=== PATIENT | female | born 1985 | race Caucasian/White ===

== ENCOUNTER 2018-01-24 10:30 | Outpatient (RCR) | payer OTHER, SELFPAY ==
--- NOTE | 2018-02-04 09:08 | HP.PTEVAL_ITS ---
Patient's Visit Information SUSIE PYLE is a 32 year old F referred to Physical Therapy by Lory Goss DO with a diagnosis of R IT band syndrome. Date of Evaluation: 01/21/18 Physical Therapist: Silver Bliss DPT - Visit Plan Frequency: 2x /Week Duration: 4 Weeks Plan: Cont core and glute complex strengthening. - Subjective Findings: Pt. is here today for her initial evaluation with diagnosis of IT band syndrom and glute med weakness. 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 Pt. reports noticing increased symtos for about 3 months now. Pt. denies N/T in either LE. Pt. reprots trying to work out a local gym and her symptoms really bothered her. Pt. was using T-mill and eliptical. Pt. reports pain is mostly at her R hip, but does extend down her lateral leg to knee knee. Pt. has done some stretching from videos online, but minimal relief. Pt. is hopeful to reduce symptoms in order to get back to all recreational and work activties without issues or limitations. - Pain R hip Pain Intensity (Out of 10): 2 Pain Intensity Range: 0, 4 - Objective POSTURE: Pt. has normal posture in stance. Pt. has equal iliac crest heights. PALPATION: Pt. has increased tenderness at R greater trochanter, R piriformis muscle belly, TFL and along IT band. NEURO: normal DTR and sensation bilaterally. ROM: Pt. has normal hip ROM bilaterally, except tight R hip- TFL, and piriformis. Pt. has normal HS length. Normal lumbar spine ROM without increase in symptoms. GAIT: Pt. has normal gait pattern, slight increase in lateral sway of hips, but minmal. STAIRS: normal pattern, mild increase NW with descending. - Special Tests R Hip Scour: Negative R Hip LA - Intraarticular Pathology: Negative R Hip FADDIR - Labrum: Negative R Hip Trendelenberg - Glut Medius: Negative R Hip Andrea - IT Band: Positive - Goals Goal 1:: Pt. to be I with HEP. Goal Time Frame: 4-6 Weeks Goal 2:: Pt. to have negative andrea's test indicating improved TLF mobility. Goal Time Frame: 4-6 Weeks Goal 3:: Pt. to have increased glute med and glute max strength to atleast 4+/5 to reduce stress to TFL with all functional mobility. Goal Time Frame: 4-6 Weeks Goal 4:: Pt. to complete her full work day withotu increase in R hip pain. Goal Time Frame: 4-6 Weeks - Rehabilitation Potential Physical Therapy Diagnosis: Pt. has signs and symptoms consistent with R IT band syndrome, most likely due to over use of TFL with glute med weakness. Pt. would benefit from PT to decreased symptoms then progress to glute med strengthening and TFL stretching. Rehabilitation Potential: Excellent - Anticipated Interventions Patient/Client Instruction: Educate patient on: Condition, Plan of Care, Risk Factors, Benefits of Fitness Program For the Purpose of:: To improve decision making, To facilitate caregiver knowledge, To improve self management, To prevent re-injury, To improve ability to perform tasks related to life management, To improve tolerance to ADL's Therapeutic Exercise to Include: Strength training, Power training, Balance training, Postural training, Flexibilty training, Passive ROM, Active ROM, Dynamic Lumbar Stabilization For the Purpose of:: To decrease pain, To increase ROM, To improve nutrient delivery to tissue, To increase oxygenation perfusion, To improve muscle performance and motor function, To improve ability to perform ADL's, To improve health of tissue, To increase flexibility/ROM Manual Therapy Techniques to Include: Mobilization, Passive ROM, Functional dry needling, Other For the Purpose of:: To decrease pain, To increase ROM, To improve nutrient delivery to tissue, To increase oxygenation perfusion, To improve muscle performance and motor function, To improve ability to perform ADL's Ultrasound (thermal/non thermal): Yes For the Purpose of:: To decrease pain, To decrease swelling/inflammation, To increase ROM Thank you for the opportunity to evaluate your patient. For Medicare and Medicare HMO plans, please review the plan of care and approve it. It will need to be FAXED BACK to us at [phone] for Medicare purposes. For Medicare only, by signing this I certify the plan of care. Please let me know if there are questions or concerns regarding this plan of care. Physician Signature: Date:
--- NOTE | 2018-08-11 08:46 | HP.PT.NRP ---
HP - Discharge Summary (1) - Patient Information SUSIE PYLE was seen in my office for initial evaluation on 01/21/18. The following Plan of Care was established for this patient: Initial Frequency: 2x /Week Initial Duration: 4 Weeks - Anticipated Interventions Patient/Client Instruction: Educate patient on: Condition, Plan of Care, Risk Factors, Benefits of Fitness Program For the Purpose of:: To improve decision making, To facilitate caregiver knowledge, To improve self management, To prevent re-injury, To improve ability to perform tasks related to life management, To improve tolerance to ADL's Therapeutic Exercise to Include: Strength training, Power training, Balance training, Postural training, Flexibilty training, Passive ROM, Active ROM, Dynamic Lumbar Stabilization For the Purpose of:: To decrease pain, To increase ROM, To improve nutrient delivery to tissue, To increase oxygenation perfusion, To improve muscle performance and motor function, To improve ability to perform ADL's, To improve health of tissue, To increase flexibility/ROM Manual Therapy Techniques to Include: Mobilization, Passive ROM, Functional dry needling, Other For the Purpose of:: To decrease pain, To increase ROM, To improve nutrient delivery to tissue, To increase oxygenation perfusion, To improve muscle performance and motor function, To improve ability to perform ADL's Ultrasound (thermal/non thermal): Yes For the Purpose of:: To decrease pain, To decrease swelling/inflammation, To increase ROM This patient was last seen in our office 01/24/18. Pertinent comments regarding their Physical therapy will appear below: Pt. was seen for her IT band syndrome. Pt. was given an HEP program with stretching and strengthening. Pt. has been doing well and is independent with her program. Pt. will be DC from PT at this point in time. At this point I will be discontinuing this patient from physical therapy. I would be happy to see this patient again in the future if found appropriate by the physician. Thank you! NOEMI AlamoT
== END 2018-01-24 19:00 | disposition home or self-care (01) ==
LOC: PT 10:30
PROVIDERS: Family Provider Internal Medicine; PCP Internal Medicine; Referring Provider Internal Medicine; Visit Provider Internal Medicine
DX: M79.604 Pain in right leg (principal); M76.30 Iliotibial band syndrome, unspecified leg
CPT/HCPCS: 97110; 97161

== ENCOUNTER 2019-03-16 20:02 | Outpatient (CLI) | payer OTHER, SELFPAY ==
[2014-09-27 07:07] VITALS: BMI 31.4
[2019-03-16 20:23] VITALS: BMI 29.7
[2019-03-16 20:56] LABS: ROM Internal Control Test YES-OK TO RESULT pt. (Internal QC); ROM Patient Test Negative (Negative)
--- NOTE | 2019-03-16 21:10 | OB.TRI.NOTE ---
History of Present Illness Date of Service: 03/16/19 Was patient seen by the physician?: No Reason For Visit: R/O LABOR Allergies No Known Allergies Allergy (Verified 03/16/19 20:24) Laboratory Studies: Laboratory Tests 03/16/19 Range/Units 20:15 Vag Amniotic Fld Detect Negative (Negative) NST - FHR Rate Baby A Baseline: 145 Variability:: Moderate Accelerations:: 15 x 15 Decelerations:: Variable NST Reactive:: Yes Uterine Activity:: Irritability Impression/Plan Reactive NST for threatened PTL
[2019-05-18 07:23] VITALS: TEMP 36.6; O2SAT 97
[2019-05-18 07:25] VITALS: BP 129/75; PULSE 100
[2019-05-18 08:58] VITALS: TEMP 37.2
[2019-05-18 08:59] VITALS: BP 135/81; PULSE 92
== END 2019-03-16 22:45 | disposition home or self-care (01) ==
LOC: WPOUT 20:13 → WP 20:14
PROVIDERS: PCP Internal Medicine; Visit Provider Obstetrics & Gynecology
DX: O60.00 Preterm labor without delivery, unspecified trimester (principal); Z3A.00 Weeks of gestation of pregnancy not specified
CPT/HCPCS: 59025; 59050; 84112; 99218; G0378

== ENCOUNTER 2019-05-18 06:55 | Inpatient (IN) | payer OTHER, SELFPAY ==
[2019-05-18] VITALS (49 sets, daily range): BP systolic 95–143; BP diastolic 50–97; PULSE 77–214; RESP 14–19; TEMP 36.2–37.5; O2SAT 78–100; BMI 31.8
[2019-05-18] MEDS: Lactated Ringers 1,000 ML 50 ML IV (07:35)
[2019-05-18] MEDS: Oxytocin 30 units/NS 500 ml 30 UNITS/500 ML IV.SOLN IV (08:15)
[2019-05-18 09:45] LABS: Absolute Lymphocyte Count 1.05 X10^3/uL (0.83-4.51); Absolute Neutrophil Count 4.8 X10^3/uL (2.0-7.7); Basophil# 0.02 X10^3/uL; Basophil% 0.3 % (0-1); Eosinophil# 0.06 X10^3/uL; Hematocrit 43.7 % (37-47); Hemoglobin 14.8 g/dL (12.0-15.0); Lymphocyte # 1.05 X10^3/ul (4.0); Lymphocyte % 16.7 % (19-41); Mean Corp Hgb Conc 33.9 g/dL (32-36); Mean Corpuscular Hgb 29.6 pg (27.0-32.0); Mean Corpuscular Volume 87.4 fL (81-99); Mean Platelet Vol. 11.3 fl (6.2-12.0); Monocyte# 0.33 X10^3/uL; Monocyte% 5.3 % (0-10); NRBC Flagged by Analyzer 0 % (0-5); Neutrophil # 4.78 X10^3/uL (2.7-7.7); Neutrophil % 76.1 % (47-70); Platelet Count 157 K/mm3 (150-450); RBC Distribution Width CV 13.4 % (11.6-14.6); RBC Distribution Width SD 42.2 fl (35.1-43.9); White Blood Count 6.3 K/mm3 (4.4-11.0)
--- NOTE | 2019-05-18 09:58 | PCM.HP.OB ---
History Date of Admission: 08/16/14 - L&D triage Final RONALDO: 05/25/19 Gestational age: 39 Weeks and 0 Days History of this : This is a 34 year-old, 3 para 1-0-1-1 at 39 weeks gestation with a EDC of 05/25/2019 by first trimester ultrasound alone presents for elective induction of labor. She denies any gross vaginal bleeding or leaking of fluid. She is had good movement. was complicated to date only by an abnormal hour GTT but her 3-hour was normal. Allergies No Known Allergies Allergy (Verified 03/16/19 20:24) Home Medications: Home Medications Vits [Prenatabs FA] 1 tablet PO DAILY 08/15/14 Smoking Status: Never smoker Alcohol: None Number of Fetus(es): 1 NST - FHR Rate Baby A Baseline: normal Variability:: Moderate Accelerations:: 15 x 15 Decelerations:: None NST Reactive:: Yes FHR Category:: Category I Uterine Activity:: ctxs q2-3 min History Past Pregnancies: Past Pregnancies Delivery Date Name GA/ Weeks Outcome Route Wt Sex Labor Length Anesthesia Delivery Location Provider FOB Expected Infant Delivery Method: Spontaneous Vaginal Review of Systems Constitutional: Denies: Chills, Fever Eyes: Denies: Blurred vision Cardiovascular: Denies: Chest Pain Respiratory: Denies: Cough Gastrointestinal: Denies: Abdominal Pain Genitourinary: Denies: Dysuria Skin: Denies: Rash Neurological: Denies: Blurred vision, Change in Speech Hematologic/ Lymphatic: Denies: Anemia Physical Exam General: Alert, Cooperative, No apparent distress Cardiovascular: Regular rate Lungs: Normal air movement Abdomen: Soft, Non Tender, Non-Distended, Gravid Extremities:: Other - edema 1+ NURSE CASE MANAGEMENT: Normal external genitalia Estimated gestational size: Appropriate for gestational size Presentation: Cephalic Cervix Dilation (cm): 3 Station: -2 Effacement (%): 70 Assessment/Plan This is a 34 year-old, @ 39 weeks for elective induction of labor. R/b/A/p for induction reviewed, questions answered and she desires to proceed. PIT/AROM induction. Epidural prn pain control.
[2019-05-18] MEDS: Lactated Ringers 500 ML 999 ML IV (11:11)
[2019-05-18] MEDS: fentaNYL-bupivacaine (epidural) 100 ML BAG EPIDURAL ×2 (12:00→16:16)
[2019-05-18] MEDS: Lactated Ringers 1,000 ML 200 ML IV (15:36)
[2019-05-18] MEDS: fentaNYL 100 MCG/2 ML Ampul IV (16:00)
[2019-05-18] MEDS: Sodium Citrate/Citric Acid 30 ML UDC PO (17:07)
[2019-05-18] MEDS: Cefazolin 2 GM in 0.9% Normal Saline 100 ML IV (17:10)
[2019-05-18] MEDS: Methylergonovine 0.2 MG/ML Ampul IM (17:41)
--- NOTE | 2019-05-18 18:24 | PCM.OPRPT ---
Delivery Classification: LISY Final RONALDO: 05/25/19 Final RONALDO Source: US <20 weeks Gestational age: 39 Weeks and 0 Days Type of Anesthesia:: Epidural Special Medications: none Implants Used: none Date of Procedure: 05/18/19 Pre-Operative Diagnosis: arrest of descent, 39 weeks , failed trial of vacuum Post-Operative Diagnosis: same Description of Procedure: The patient had been complete for over 2 hours. We are having difficulty getting her comfortable with her epidural. It had been redosed several times, and she had recently received some lidocaine which made her a little more comfortable. However, she could start to feel increased pain with her contractions again. Estimated weight clinically was less than 4500 g and pelvis is clinically adequate to expect vaginal delivery. Patient had progressed to complete and +2, SANDI position. Straight catheterization had been formed by nursing immediately before the procedure. I discussed with the patient and her options of attempting to replace the epidural and allowing her to labor down more, trial of the vacuum, or proceeding with section. They elected to proceed with the trial of vacuum. Vacuum was placed on the flexion point and suction created to 550 mmHg. I checked to ensure no maternal tissue was entrapped within the vacuum. I pulled once, and the vacuum slipped onto the right vaginal sidewall whilst still remaining partially attached to the skull. I released the vacuum and removed the vacuum and replaced it in the proper position and ensured again that there was no maternal tissue trap beneath it. However, as I began to pull and noticed that the vacuum began to move and I had to place a finger between the maternal tissue and vacuum but the vacuum kept wanting to release. Pulled for 3 total pulls, and the suction would not remain on the skull. Had been no significant descent with those 3 pulls. At this point, I discussed with the patient and her that I felt continuing the second stage would result in a high likelihood of . Recommended now versus replacing epidural and attempting to continue the second stage. Consent was obtained. It was noted that there was a right 2 cm vaginal laceration that was actively bleeding. This was oversewed with 3-0 Vicryl repeat in a running locked fashion and hemostasis was noted. A vaginal sweep was completed by me. All sponge and needle counts were correct and the patient was taken the operating room. The patient was taken to the operating room. She was prepped and draped in the dorsal supine position with a leftward tilt. A Pfannenstiel skin incision was made approximately 2 cm above the symphysis pubis and carried through to underlying layer fascia with the scalpel. The fascia was incised incised in the midline and extended laterally with the Cook scissors. The fascia was dissected off the rectus muscles with blunt and sharp dissection. The rectus muscles were in the midline and the peritoneum was entered bluntly. The peritoneal incision was stretched and the bladder blade was placed. The uterine incision was made in a low transverse fashion with the scalpel and extended superiorly and inferiorly with blunt dissection. Care was made to make the uterine incision high on the uterus, and when I entered the uterine cavity the arm delivered. I was able to place a hand down under the skull without difficulty and easily released the fetus from the pelvis. The infant's head was brought to the incision in the flexed position and delivered without difficulty. The remainder of the infant was delivered with gentle traction and fundal pressure in the standard fashion. The mouth and nares were bulb suctioned. The cord was clamped and cut as the was stimulated. Cord clamping was delayed. The was handed off to the waiting nursing staff. The placenta was delivered with fundal massage and gentle traction in the standard fashion. The uterus was exteriorized and cleared of all clots and debris. . The uterine incision was closed with #1 Vicryl in a running locked fashion. A second layer of the same suture was used in an imbricating fashion. There is still a bleeding sinus on the left side of the uterine incision in a [id number] #1 Vicryl suture was placed here and then hemostasis was noted. The bladder was very near the incision and I did dissect down the bladder to ensure that the bladder flap was not contained within the uterine incision closure. The incision was again examined and was found to be hemostatic. The uterus was placed back into the peritoneal cavity and hemostasis was again confirmed. The rectus muscles were examined and any bleeding was Bovie cauterized. The parietal peritoneum and rectus muscles were closed en bloc with an 0 Vicryl running suture. The surgical teams outer gloves were then changed. Some bleeding from the rectus muscle perforating vessel and this was grasped with a hemostat and oversewn with 3-0 Vicryl suture. Kenyetta was placed over every layer. The rectus fascia was examined and any bleeding was Bovie cauterized and the rectus fascia was closed with 1 Vicryl suture in a running standard fashion. The subcutaneous tissue was examining and any bleeding was Bovie cauterized. The subcutaneous tissue was reapproximated with 3-0 Vicryl suture. The skin was closed in a subcuticular fashion by the LOAD MANAGER with me present in the labor and delivery suite. I performed the remainder of the procedure with assistance. I then reexamined the vaginal laceration it was found to be hemostatic and intact. No other lacerations were identified. All sponge, lap, and needle counts were correct. The patient was taken to her room for recovery in a stable condition. Amniotic Membrane Rupture Type: Artificial Amniotic Fluid Description: Clear Placenta Disposition: [facility] Drain: Carrion to straight drain Fluids Replaced: 1000 Cord Entanglement: None Cord Vessel Description: 3 Vessels Esitmated Blood Loss (ml): 1000 Gender: Female (1 minute): 8 (5 minute): 9 Delayed cord clamping: Yes Antibiotic Given: Ancef 2 grams IV x1, Zithromax 500 mg/5 mL X1 - Admit VTE Documentation VTE Present on Admission: No VTE Mechan Device Prophylaxis: SCD's VTE Pharm Prophylaxis ordered?: No Reason prophylaxis not ordered:: Procedure Not Indicated
[2019-05-18] MEDS: Oxytocin 30 units/NS 500 ml 30 UNITS/500 ML IV.SOLN 167 UNITS IV (18:45)
[2019-05-18] MEDS: 0.9% Saline Lock 10 ML Syringe IV (21:55)
--- NOTE | 2019-05-18 22:48 | NURSING ---
2049 Pericare done and peripad and underpad changed. Cloudy yellow urine noted in catheter tubing when turning pt side to side.
[2019-05-19] VITALS (8 sets, daily range): BP systolic 118–139; BP diastolic 55–80; PULSE 83–113; RESP 16–18; TEMP 36.5–37.2; O2SAT 97–99
[2019-05-19] MEDS: 0.9% Saline Lock 10 ML Syringe IV ×6 (00:06→23:44)
[2019-05-19] MEDS: Ketorolac 30 MG/ML Syringe IV ×5 (00:06→23:43)
--- NOTE | 2019-05-19 00:27 | NURSING ---
0015 Assisted pt up around room for first post op ambulation. Abdominal binder used for support, pt tolerated well and walked 4 times around room.
[2019-05-19 06:14] LABS: Hematocrit 26.6 % (37-47); Mean Corp Hgb Conc 33.8 g/dL (32-36); Mean Corpuscular Hgb 29.7 pg (27.0-32.0); Mean Corpuscular Volume 87.8 fL (81-99); Platelet Count 196 K/mm3 (150-450); RBC Distribution Width CV 13.2 % (11.6-14.6); RBC Distribution Width SD 41.8 fl (35.1-43.9); Red Blood Count 3.03 M/mm3 (4.2-5.4); White Blood Count 15.5 K/mm3 (4.4-11.0)
--- NOTE | 2019-05-19 09:47 | PN.OBGYN_ITS ---
Subjective: Doing well per patient and nursing staff. Ambulating and taking PO without difficulty. Voiding and passing flatus. without difficulty. Pain controlled. Denies any cough, shortness of breath, chest pain, leg pain, increased vaginal bleeding or clots. Planning D/C home tomorrow. - Physical Exam Vitals/I&O's: Vital Signs Temp Pulse Resp BP Pulse Ox 97.9 F 95 18 118/55 L 97 05/19/19 08:04 05/19/19 08:04 05/19/19 08:04 05/19/19 08:04 05/19/19 08:04 Oxygen Delivery Method Room Air Weight: 179 lb 10.828 oz Body Mass Index (BMI) 31.8 Intake and Output for Last 24 Hours 05/17/19 05/18/19 05/19/19 23:59 23:59 23:59 Intake Total 2858.02 / 2858.02 Output Total 218 / 218 1200 / 1200 Balance 2640.02 / 2640.02 -1200 / -1200 General: Alert, Oriented x3, Cooperative HEENT: Atraumatic, Normocephalic Neck: Trachea Midline Lungs: Clear to auscultation, Normal air movement, No rhonchi, No wheeze Cardiovascular: Regular rate, Regular Rhythm, No murmurs Abdomen: Bowel Sounds Present - Fundus firm, 3 below U. Incision dressing dry and intact., Soft, Hypoactive Bowel Sounds Extremities: No edema - Latia's negative Psych/Mental Status: Normal Affect, Appropriate Laboratory Results 05/18/19 07:35: Blood Type A POSITIVE, Antibody Screen NEGATIVE 05/19/19 05:38: WBC 15.5 H, RBC 3.03 L, Hgb 9.0 L, Hct 26.6 L, MCV 87.8, MCH 29.7, MCHC 33.8, RDW Std Deviation 41.8, RDW Coeff of Olman 13.2, Plt Count 196, MPV 11.0 Current Medications Acetaminophen (Tylenol) 1,000 mg PO Q8H PRN PRN Reason: Pain Score 1-3/10 Bisacodyl (Dulcolax) 10 mg RECTAL UD PRN PRN Reason: If no BM Diphenhydramine HCl (Benadryl) 25 mg PO Q6H PRN PRN PRN Reason: ITCHING Stop: 05/19/19 19:55 Ferrous Sulfate (Ferrous Sulfate) 325 mg PO 1200,1700 [facility] Hydrocortisone (Hytone) 1 applic TOPICAL TID PRN PRN; Protocol PRN Reason: Discomfort Lactated Ringer's () 1,000 mls @ 100 mls/hr IV .Q10H [facility] Last Admin: 05/19/19 07:43 Dose: Not Given Documented by: Naloxone HCl 4 mg/ Dextrose 504 mls @ 0 mls/hr IV .Q0M PRN; Protocol PRN Reason: To maintain Resp. rate >10 Ibuprofen (Motrin) 600 mg PO Q6H PRN PRN PRN Reason: Pain Score 1-3/10 Ketorolac Tromethamine (Toradol (Bkc)) 30 mg IV Q6 [facility] Stop: 05/20/19 18:01 Last Admin: 05/19/19 05:57 Dose: 30 mg Documented by: Methylergonovine Maleate (Methergine) 0.2 mg IM X1 PRN PRN Reason: Uterine Atony Last Admin: 05/18/19 17:41 Dose: 0.2 mg Documented by: Naloxone HCl (Narcan) 0.02 mg IV Q1M PRN PRN Reason: RR <10 and pt unresponsive Ondansetron HCl (Zofran) 4 mg IV Q4H PRN PRN PRN Reason: Nausea Ondansetron HCl (Zofran Odt) 4 mg PO Q4H PRN PRN PRN Reason: ITCHING Stop: 05/19/19 19:55 Prochlorperazine Edisylate (Compazine Iv) 10 mg IV Q6H PRN PRN PRN Reason: NAUSEA Senna/Docusate Sodium (Senokot-S, Ana Rosa-Colace) 0 tablet PO DAILY PRN PRN Reason: Constipation Simethicone (Mylicon) 80 mg PO PCHS PRN PRN Reason: Indigestion/stomach pain Sodium Chloride () 5 - 15 ml IV UD PRN PRN Reason: SALINE FLUSH Last Admin: 05/19/19 05:57 Dose: 10 ml Documented by: Medical Necessity - Tobacco Use Smoking Status: Former smoker Assessment/Plan A: POD #1 Primary Section Acute Blood loss anemia P: 1) Routine and instructions 2) Hgb 14.8 to 9.0, asymptomatic, will start Ferrous sulfate 325mg PO BID with stool softener. 3) Planning D/C home tomorrow.
[2019-05-19] MEDS: Ferrous Sulfate 325 MG Tablet PO ×2 (12:47→18:44)
[2019-05-19] MEDS: Senna/Docusate Sodium 1 Tablet PO (13:20)
[2019-05-20 03:00] VITALS: BP 134/82; PULSE 98; RESP 16; TEMP 36.6
[2019-05-20] MEDS: Ketorolac 30 MG/ML Syringe IV ×2 (06:01→12:08)
[2019-05-20] MEDS: 0.9% Saline Lock 10 ML Syringe IV ×3 (06:02→12:08)
[2019-05-20 08:50] VITALS: BP 122/66; PULSE 98; RESP 16; TEMP 37; O2SAT 97
[2019-05-20] MEDS: Senna/Docusate Sodium 1 Tablet PO (10:41)
--- NOTE | 2019-05-20 11:31 | PCM.PN.OB ---
Subjective: Doing well per patient and nursing staff. Ambulating and taking PO without difficulty. Voiding and passing flatus. Denies cough, dizziness, headache, visual changes, chest pain, shortness of breath, or leg pain. Lochia normal. without difficulty. Planning D/C home today. - Physical Exam Vitals/I&O's: Vital Signs Temp Pulse Resp BP Pulse Ox 98.6 F 98 16 122/66 H 97 05/20/19 08:50 05/20/19 08:50 05/20/19 08:50 05/20/19 08:50 05/20/19 08:50 Oxygen Delivery Method Room Air Weight: 179 lb 10.828 oz Body Mass Index (BMI) 31.8 Intake and Output for Last 24 Hours 05/18/19 05/19/19 05/20/19 23:59 23:59 23:59 Intake Total 2858.02 / 2858.02 Output Total 218 / 218 1700 / 1700 Balance 2640.02 / 2640.02 -1700 / -1700 General: Alert, Oriented x3, Cooperative HEENT: Atraumatic, Normocephalic Neck: Trachea Midline Lungs: Clear to auscultation, Normal air movement, No rhonchi, No wheeze Cardiovascular: Regular rate, Regular Rhythm, No murmurs Abdomen: Bowel Sounds Present, Soft - Fundus firm 3 below U. Dressing dry and intact. Extremities: No edema - Latia's negative bilaterally Psych/Mental Status: Normal Affect, Appropriate Current Medications Acetaminophen (Tylenol) 1,000 mg PO Q8H PRN PRN Reason: Pain Score 1-3/10 Bisacodyl (Dulcolax) 10 mg RECTAL UD PRN PRN Reason: If no BM Ferrous Sulfate (Ferrous Sulfate) 325 mg PO 1200,1700 [facility] Last Admin: 05/19/19 18:44 Dose: 325 mg Documented by: Hydrocortisone (Hytone) 1 applic TOPICAL TID PRN PRN; Protocol PRN Reason: Discomfort Naloxone HCl 4 mg/ Dextrose 504 mls @ 0 mls/hr IV .Q0M PRN; Protocol PRN Reason: To maintain Resp. rate >10 Ibuprofen (Motrin) 600 mg PO Q6H PRN PRN PRN Reason: Pain Score 1-3/10 Ketorolac Tromethamine (Toradol (Bkc)) 30 mg IV Q6 [facility] Stop: 05/20/19 18:01 Last Admin: 05/20/19 06:01 Dose: 30 mg Documented by: Methylergonovine Maleate (Methergine) 0.2 mg IM X1 PRN PRN Reason: Uterine Atony Last Admin: 05/18/19 17:41 Dose: 0.2 mg Documented by: Naloxone HCl (Narcan) 0.02 mg IV Q1M PRN PRN Reason: RR <10 and pt unresponsive Ondansetron HCl (Zofran) 4 mg IV Q4H PRN PRN PRN Reason: Nausea Prochlorperazine Edisylate (Compazine Iv) 10 mg IV Q6H PRN PRN PRN Reason: NAUSEA Senna/Docusate Sodium (Senokot-S, Ana Rosa-Colace) 0 tablet PO DAILY PRN PRN Reason: Constipation Last Admin: 05/20/19 10:41 Dose: 2 tablet Documented by: Simethicone (Mylicon) 80 mg PO PCHS PRN PRN Reason: Indigestion/stomach pain Last Admin: 05/19/19 10:38 Dose: 80 mg Documented by: Sodium Chloride () 5 - 15 ml IV UD PRN PRN Reason: SALINE FLUSH Last Admin: 05/20/19 06:03 Dose: 10 ml Documented by: Medical Necessity - Tobacco Use Smoking Status: Former smoker Assessment/Plan A: POD #2 primary section Acute blood loss anemia P: 1) Routine and discharge instructions reviewed. Doing well. 2) BP mildly elevated, asymptomatic. Will get BP cuff and check BP daily, advised to call if > 140/90. 3) Follow up in 1 week for incision and BP check and 6 weeks for virtual visit. 4) Discharge home today. 5) Declines LARC
--- NOTE | 2019-05-20 11:43 | DCINST_ITS ---
Discharge Diet: No Restrictions Discharge Activity: May Not Drive - for 2 weeks or while taking narcotic pain meds., May Shower, May Take a Tub Bath - in 7 days. May resume sexual activity in: 4-6 weeks Weight Bearing Status: Full weight bearing Lifting Restrictions: 20 pounds Additional Activity Instructions:: Nothing in the vagina for 4-6 weeks. You may return to work/school in 6 weeks. Call your doctor if your incision/area has: Continuous Slow Oozing, Sudden Increased Bleeding, Increased Pain/ Swelling, Increased Redness, Foul Smelling Discharge Call your doctor if you observe: Fever of 101 or Higher, Change in Color, Inability to urinate, Inability to have a bowel movement, Using more than one pad per hour, Shortness of breath, Chest pain, Increased palpitations (irregular heartbeat), Calf discomfort, Uncontrolled pain Suture Line Care: Avoid Pulling/Pushing, Avoid Pinching/Bending Additional Instructions: If you experience any of the following, contact your healthcare provider. * Bleeding that soaks a pad every hour for 2 hours * Fever 100.4 or higher * Unrelieved incision or abdominal pain * Swelling, redness, discharge or bleeding from your incision or episiotomy site * Your incision begins to separate * Problems urinating (including inability to urinate or burning while urinating). * Visual changes * Severe headache * Flu-like symptoms * Pain or redness in one of both of your breasts * Pain, warmth, tenderness or swelling in your legs, especially the calf area * Frequent nausea and vomiting * Symptoms of depression or anxiety If you experience any of the following, call 911 or go to the nearest Emergency Room. * Chest pain * Problems breathing * Seizure activity * Partial or complete paralysis of a body part, slurred speech, weakness or drooping of the face, or a sudden inability to walk or hold your balance Allergies/Adverse Reactions: Allergies No Known Allergies Allergy (Verified 03/16/19 20:24) Medications to take at Discharge Vits [Prenatabs FA ] 1 tablet PO DAILY 08/15/14 Ferrous Sulfate 325 mg PO 1200,1700 #60 tab 05/20/19 Oxycodone HCl/Acetaminophen [Percocet 5/325] 1 - 2 tablet PO Q4H PRN PRN 7 Days #20 tablet 05/20/19 The following prescriptions were given: Ferrous Sulfate 325 mg PO 1200,1700 #60 tab Transmission Status: Pending to MARIBELL MORILLO RD Oxycodone HCl/Acetaminophen [Percocet 5/325] 1 - 2 tablet PO Q4H PRN PRN 7 Days #20 tablet PRN Reason: Pain Transmission Status: Received by MARIBELL MORILLO RD Follow-Up: Call to make an appointment with your doctor for an incision check in 1-2 weeks. Call and they can assist with setting up a virtual visit. You will also need a 6 week post- follow up appointment. Please take BP and call Wednesday with results. If greater than 140/90 please call certification technician provider this weekend. Please Follow Up With: Zuly Salas MD Primary Care Physician: Lory Goss DO [Primary Care Provider] -
--- NOTE | 2019-05-20 11:46 | DS.PCM_ITS ---
Discharge Date and Diagnosis Date of Admission: 08/16/14 - L&D triage Date of Discharge: 05/20/19 - Primary Discharge Diagnosis section - Secondary Discharge Diagnosis acute blood loss anemia Hospital Course and Treatment Consultations 05/18/19 09:39 Consult: Anesthesia Routine Comment: Reason For Exam: Labor Operations: - - Section Procedures: None Summary of Care Provided: This is a 34 year-old, 3 para 1-0-1-1 at 39 weeks gestation with a EDC of 05/25/2019 by first trimester ultrasound alone presents for elective induction of labor. Arrest of descent, 39 weeks , failed trial of vacuum. Normal course. Acute blood loss anemia. Discharge home on day #2. - Physical Exam Vitals/I&O's: Vital Signs Temp Pulse Resp BP Pulse Ox 98.6 F 98 16 122/66 H 97 05/20/19 08:50 05/20/19 08:50 05/20/19 08:50 05/20/19 08:50 05/20/19 08:50 Oxygen Delivery Method Room Air Weight: 179 lb 10.828 oz Body Mass Index (BMI) 31.8 Intake and Output for Last 24 Hours 05/18/19 05/19/19 05/20/19 23:59 23:59 23:59 Intake Total 2858.02 / 2858.02 Output Total 218 / 218 1700 / 1700 Balance 2640.02 / 2640.02 -1700 / -1700 Current Medications Acetaminophen (Tylenol) 1,000 mg PO Q8H PRN PRN Reason: Pain Score 1-3/10 Bisacodyl (Dulcolax) 10 mg RECTAL UD PRN PRN Reason: If no BM Ferrous Sulfate (Ferrous Sulfate) 325 mg PO 1200,1700 [facility] Last Admin: 05/19/19 18:44 Dose: 325 mg Documented by: Hydrocortisone (Hytone) 1 applic TOPICAL TID PRN PRN; Protocol PRN Reason: Discomfort Naloxone HCl 4 mg/ Dextrose 504 mls @ 0 mls/hr IV .Q0M PRN; Protocol PRN Reason: To maintain Resp. rate >10 Ibuprofen (Motrin) 600 mg PO Q6H PRN PRN PRN Reason: Pain Score 1-3/10 Ketorolac Tromethamine (Toradol (Bkc)) 30 mg IV Q6 [facility] Stop: 05/20/19 18:01 Last Admin: 05/20/19 06:01 Dose: 30 mg Documented by: Methylergonovine Maleate (Methergine) 0.2 mg IM X1 PRN PRN Reason: Uterine Atony Last Admin: 05/18/19 17:41 Dose: 0.2 mg Documented by: Naloxone HCl (Narcan) 0.02 mg IV Q1M PRN PRN Reason: RR <10 and pt unresponsive Ondansetron HCl (Zofran) 4 mg IV Q4H PRN PRN PRN Reason: Nausea Prochlorperazine Edisylate (Compazine Iv) 10 mg IV Q6H PRN PRN PRN Reason: NAUSEA Senna/Docusate Sodium (Senokot-S, [place]-Colace) 0 tablet PO DAILY PRN PRN Reason: Constipation Last Admin: 05/20/19 10:41 Dose: 2 tablet Documented by: Simethicone (Mylicon) 80 mg PO PCHS PRN PRN Reason: Indigestion/stomach pain Last Admin: 05/19/19 10:38 Dose: 80 mg Documented by: Sodium Chloride () 5 - 15 ml IV UD PRN PRN Reason: SALINE FLUSH Last Admin: 05/20/19 06:03 Dose: 10 ml Documented by: Discharge Diet: No Restrictions Discharge Activity: May Not Drive - for 2 weeks or while taking narcotic pain meds., May Shower, May Take a Tub Bath - in 7 days. May resume sexual activity in: 4-6 weeks Weight Bearing Status: Full weight bearing Additional Activity Instructions:: Nothing in the vagina for 4-6 weeks. You may return to work/school in 6 weeks. Call your doctor if your incision/area has: Continuous Slow Oozing, Sudden Inc reased Bleeding, Increased Pain/ Swelling, Increased Redness, Foul Smelling Discharge Call your doctor if you observe: Fever of 101 or Higher, Change in Color, Inability to urinate, Inability to have a bowel movement, Using more than one pad per hour, Shortness of breath, Chest pain, Increased palpitations (irregular heartbeat), Calf discomfort, Uncontrolled pain Suture Line Care: Avoid Pulling/Pushing, Avoid Pinching/Bending Home Medications: Medications to take at Discharge Vits [Prenatabs FA ] 1 tablet PO DAILY 08/15/14 Ferrous Sulfate 325 mg PO 1200,1700 #60 tab 05/20/19 Oxycodone HCl/Acetaminophen [Percocet 5/325] 1 - 2 tablet PO Q4H PRN PRN 7 Days #20 tablet 05/20/19 Following Prescrptions Were Given to Patient: Ferrous Sulfate 325 mg PO 1200,1700 #60 tab Transmission Status: Pending to [facility] AGUILAR [facility]ISEL [facility]IRKPATRICK Oxycodone HCl/Acetaminophen [Percocet 5/325] 1 - 2 tablet PO Q4H PRN PRN 7 Days #20 tablet PRN Reason: Pain Transmission Status: Received by MARIBELL MORILLO RD Primary Care Physician: Lory Goss DO [Primary Care Provider] - Please Follow Up With: Zuly Salas MD Medical Necessity - Tobacco Use Smoking Status: Former smoker Meaningful Use Info Meaningful Use Diagnoses (Choose all that apply): None applicable
[2019-05-20] MEDS: Ferrous Sulfate 325 MG Tablet PO (12:07)
[2019-05-20 13:45] VITALS: BP 130/73; PULSE 97; TEMP 36.8; O2SAT 98
== END 2019-05-20 15:05 | disposition home or self-care (01) | DRG 787 ==
PROVIDERS: Admitting Provider Obstetrics & Gynecology; PCP Internal Medicine; Referring Provider Obstetrics & Gynecology; Visit Provider Obstetrics & Gynecology
DX: O62.1 Secondary uterine inertia (principal); O71.4 Obstetric high vaginal laceration alone; Z37.0 Single live birth; Z3A.39 39 weeks gestation of pregnancy; O66.5 Attempted application of vacuum extractor and forceps; Z87.891 Personal history of nicotine dependence
CPT/HCPCS: 59025; 59050; 85025; 85027; 86850; 86900; 86901; 99218; J7120; A4216; G0378; J2405

== ENCOUNTER 2022-03-17 13:28 | Emergency (ER) | payer MEDICAID, SELFPAY ==
[2022-03-17 13:28] VITALS: BP 121/79; PULSE 136; RESP 16; TEMP 38.2; O2SAT 99; BMI 24.3
--- NOTE | 2022-03-17 14:17 | EDS_ITS ---
HPI History of Present Illness Chief Complaint: Abscess Detail of Chief Complaint: Ruptured abscess now has redness, fever and chills Informant: patient Onset/Context/Timing Onset: - (Documented in the HPI narrative) Context: Sudden Onset Timing: Continuous Quality: Skin infection Location: Proximal medial right thigh Current Severity: Mild Maximum Severity: Mild Worsened by: Nothing specific Relieved by: Nothing Associated Symptoms Associated Symptoms: Fever, chills and lightheadedness Narrative Narrative: Patient is a 37-year-old G3, P2 female with no significant past medical history who presents from urgent care because of concern for sepsis. Patient states she noted a red dot medial proximal right thigh several days ago. She observed the red area increase in size. She states she poked it with a needle and expressed white material from the wound. Today she went to the urgent care because of fever and chills. She denies allergy to antibiotics. She does report headache, thirst, fever and chills, nausea, central low back pain with rash previously described. She denies dysuria, frequency, urgency or hematuria. She denies rhinorrhea, congestion, postnasal drainage or sore throat. She denies cough or shortness of breath. She does have remote history of DVT right lower extremity. She denies swelling of her leg or discoloration. She denies prior history of abscess. She denies history rheumatic fever, heart murmur, SBE or being immune suppressed. Prior similar symptoms: No Recent Illness/Hospitalization: No (Last hospitalization was 2019 for ) [facility] Medical History (Updated 03/17/22 @ 15:[address] Ravi Montana MD) DVT (deep vein thrombosis) in Home Medications vits,calcium no.78-iron fumarate-folic acid 29 mg-1 mg tablet (Prenatabs FA) 1 tab PO DAILY 08/15/14 [History Last Taken 05/17/19 22:00] ferrous sulfate 325 mg (65 mg iron) tablet 325 mg PO 1200,1700 #60 tabs 05/20/19 [Rx Last Taken Unknown] cephalexin 500 mg capsule 500 mg PO Q6 #28 CAPSULES 03/17/22 [Rx Last Taken Unknown] Allergy/AdvReac Type Severity Reaction Status Date / Time No Known Allergies Allergy Verified 03/17/22 13:31 Surgical History no surgical history no surgical history Social History (Updated 03/17/22 @ 14:[address] Ravi Montana MD) household members: family Smoking Status: Never smoker substance use type: does not use ROS ROS ED Constitutional Constitutional ED: Reports chills, fever(s) and sweats; Denies subjective or weight loss Eyes Eyes: Denies blurry vision, change in vision or diplopia ENT ENT ED: Denies ear pain, rhinorrhea or sore throat Cardiovascular Cardiovascular: Reports racing heartbeat; Denies chest pain or palpitations Respiratory/Chest Respiratory/Chest: Denies cough, dyspnea or dyspnea on exertion Gastrointestinal Gastrointestinal: Reports nausea; Denies abdominal pain, constipation, diarrhea, melena or vomiting Genitourinary Genitourinary ED: Denies dysuria, hematuria or urinary frequency Musculoskeletal Musculoskeletal: Denies arthralgias, back pain, myalgias or neck pain Integumentary Reports abscess and rash; Denies Abrasions Neurologic Neurologic: Denies headache(s), paresthesias or weakness Psychiatric Psychiatric: Denies anxiety or depression Hematologic/Lymphatic Hematologic/Lymphatic: Reports systems reviewed and no addt'l complaints, except as documented and none EXAM Physical Exam Const Vital Signs: 03/17/22 13:28 Temperature 100.8 F H Temperature Source Oral Pulse Rate 136 H Respiratory Rate 16 Blood Pressure 121/79 H Blood Pressure Mean 93 Pulse Ox 99 Oxygen Delivery Method Room Air Positive well nourished and well developed General Appearance ED: well developed and NAD; Negative for cyanotic, diaphoretic or pallor HEENT Reports moist mucous membranes HEENT Narrative: Head is atraumatic normocephalic. Ears normal. TMs normal. Nares patent. There is no drainage. Posterior pharynx erythema or exudate. Uvula is midline. Eyes PERRL and EOMs intact bilaterally General Eye ED: Negative for pale conjunctiva or scleral icterus Neck no lymphadenopathy, supple and no JVD Chest Wall inspection of chest normal and palpation of chest normal Resp normal respiratory effort and clear to auscultation bilaterally Cardio regular rhythm, S1 normal heart sound, S2 normal heart sound and no murmurs Rate: tachycardic GI normal to inspection, nondistended, normoactive bowel sounds, non-tender, non- distended and no masses; Negative for hepatosplenomegaly Back/Spine no CVA tenderness Thoracic Spine / Upper Back: Negative for thoracic spinal tenderness Lumbar Spine / Lower Back: Negative for lumbar spinal tenderness Extremity Negative for normal to inspection Extremity Narrative: Patient has an area of redness approximately 3 cm in diameter. There is no lymphangitis. There is no fluctuance. There is warmth. There is no induration. There is no asymmetry, swelling, discoloration, leg vein distention, palpable cords or tenderness along the distribution of the deep venous system. Neuro oriented x3, CN's II-XII intact bilaterally and no sensory deficits noted Sensorium / Orientation: alert Psych mental status grossly normal Skin No no rashes or lesions noted, No no wounds and skin turgor normal General Skin Exam: Negative for jaundice or pallor Rashes: rashes noted MDM MDM MDM Narrative Medical decision making narrative: Patient has 2 sirs criteria with elevated temperature and tachycardia. Patient does have a source of infection. Since this occurred rapidly suspect streptococcal infection. CBC, BMP and lactate were obtained these were obtained to determine if patient can safely and appropriately be discharged with outpatient versus requiring inpatient therapy. We will treat temperature with Tylenol and administer fluid bolus. Since patient's white count is normal, there is no evidence of endorgan dysfunction and lactate is normal patient will be treated as an outpatient with cephalexin. Since there is no mucopurulence drainage we will treat with cephalexin especially since symptoms started rapidly, over the past 24 hours. This would make a streptococcal organism much more likely than staphylococcal organism. Lab Data Attestation: I reviewed the patient's lab results. Lab results narrative: White count is normal. There is a slight shift. Basic metabolic panel is normal. Lactate is normal. test is negative. Labs: Laboratory Results - last 24 hr 03/17/22 03/17/22 03/17/22 14:20 14:20 14:20 WBC 10.2 RBC 4.07 L Hgb 12.4 Hct 37.0 MCV 90.9 MCH 30.5 MCHC 33.5 RDW Std Deviation 43.0 RDW Coeff of Olman 13.1 Plt Count 170 MPV 10.0 Immature Gran % (Auto) 0.300 Neut % (Auto) 91.4 H Lymph % (Auto) 4.0 L [place] % (Auto) 4.1 Eos % (Auto) 0.0 Baso % (Auto) 0.2 Absolute Neuts (auto) 9.3 H Absolute Lymphs (auto) 0.41 L Nucleated RBC % 0 Differential Comment SCANNED Sodium 136 Potassium 3.7 Chloride 108 H Carbon Dioxide 22.0 Anion Gap 6 BUN 14 Creatinine 0.69 Estim Creat Clear Calc 97.33 Est GFR (MDRD) Af Amer 123 Est GFR (MDRD) Non-Af 102 BUN/Creatinine Ratio 20.2 H Glucose 114 H Lactic Acid 1.5 Calcium 8.7 Serum , Qual 03/17/22 14:20 WBC RBC Hgb Hct MCV MCH MCHC RDW Std Deviation RDW Coeff of Olman Plt Count MPV Immature Gran % (Auto) Neut % (Auto) Lymph % (Auto) [place] % (Auto) Eos % (Auto) Baso % (Auto) Absolute Neuts (auto) Absolute Lymphs (auto) Nucleated RBC % Differential Comment Sodium Potassium Chloride Carbon Dioxide Anion Gap BUN Creatinine Estim Creat Clear Calc Est GFR (MDRD) Af Amer Est GFR (MDRD) Non-Af BUN/Creatinine Ratio Glucose Lactic Acid Calcium Serum , Qual NEGATIVE Discharge Plan Triage Chief Complaint: Abscess ED Provider: Ravi Montana Dx/Rx/DC Orders Clinical Impression: Cellulitis of right thigh, Sepsis without acute organ dysfunction, Sinus tachycardia, Fever Instructions: ED Cellulitis Prescriptions: New cephalexin [cephalexin] 500 mg capsule 500 mg PO Q6 Qty: 28 0RF No Action vit,[id number] [Prenatabs FA] 1 TABLET tablet 1 tab PO DAILY ferrous sulfate 325 MG tablet 325 mg PO 1200,1700 Qty: 60 1RF Primary Care Provider: Lory Goss Referrals: Lory Goss DO [Primary Care Provider] - 3-5 Days Disposition Disposition: Home, Self Care
[2022-03-17 14:33] LABS: Absolute Lymphocyte Count 0.41 X10^3/uL (0.83-4.51); Absolute Neutrophil Count 9.3 X10^3/uL (2.0-7.7); Basophil# 0.02 X10^3/uL; Basophil% 0.2 % (0-1); Hemoglobin 12.4 g/dL (12.0-15.0); Lymphocyte # 0.41 X10^3/ul (0.83-4.51); Mean Corp Hgb Conc 33.5 g/dL (32-36); Mean Corpuscular Hgb 30.5 pg (27.0-32.0); Mean Corpuscular Volume 90.9 fL (81-99); Monocyte# 0.42 X10^3/uL; Monocyte% 4.1 % (0-10); NRBC Flagged by Analyzer 0 % (0-5); Neutrophil # 9.28 X10^3/uL (2.7-7.7); Neutrophil % 91.4 % (47-70); POSITIVE DIFFERENTIAL YES; Platelet Count 170 K/mm3 (150-450); RBC Distribution Width CV 13.1 % (11.6-14.6); Red Blood Count 4.07 M/mm3 (4.2-5.4); White Blood Count 10.2 K/mm3 (4.4-11.0)
[2022-03-17 14:35] LABS: Differential Indicated SCAN CRITERIA MET
[2022-03-17 14:48] LABS: Anion Gap 6 (5-15); BUN 14 mg/dL (7-18); BUN/Creat Ratio 20.2 RATIO (10-20); Calcium,Total 8.7 mg/dL (8.5-10.1); Chloride 108 mmol/L (98-107); Creatinine, Serum 0.69 mg/dL (0.55-1.02); EST Glomerular Filtration Rate 102 mL/min (>60); Est Glom Filt Rate - Afr Amer 123 mL/min (>60); Estimated Creatinine Clearance 97.33 ml/min; Glucose 114 mg/dL (74-106); Potassium 3.7 mmol/L (3.5-5.1); Sodium Level 136 mmol/L (136-145)
[2022-03-17] MEDS: Acetaminophen 500 MG Tablet PO (14:50)
[2022-03-17] MEDS: 0.9% Normal Saline 1,000 ML 1000 ML IV (14:51)
[2022-03-17 15:01] LABS: Differential Comment SCANNED
[2022-03-17 15:02] LABS: Lactic Acid 1.5 mmol/L (0.4-1.9)
[2022-03-17 15:18] LABS: Internal QC Validated? YES +Cl - CLEAR BKGD; Pregnancy, Serum, hCG Quali. NEGATIVE Negative
== END 2022-03-17 16:15 | disposition home or self-care (01) ==
PROVIDERS: Emergency Provider Emergency Medicine; PCP Internal Medicine; Visit Provider Emergency Medicine
DX: L03.115 Cellulitis of right lower limb (principal); A41.9 Sepsis, unspecified organism; R00.0 Tachycardia, unspecified; R50.9 Fever, unspecified; Z86.718 Personal history of other venous thrombosis and embolism
CPT/HCPCS: 80048; 83605; 84703; 85025; 96365; 99285; J7030; A4216; J0295

== ENCOUNTER 2022-10-02 09:56 | Emergency (ER) | payer MEDICAID, SELFPAY ==
[2022-10-02 09:58] VITALS: BP 133/55; PULSE 87; RESP 14; TEMP 36.1; O2SAT 100; BMI 24.3
--- NOTE | 2022-10-02 10:09 | VDLE_ITS ---
Version 2 Reason For Study: Pain RLE RIGHT LEFT CFV is compressible, spontaneous, phasic, CFV is compressible, spontaneous, phasic, competent and demonstrates normal competent, and demonstrates normal augmentation. augmentation. FV is compressible, spontaneous, phasic, competent and demonstrates normal augmentation. POP V is compressible, spontaneous, phasic, competent and demonstrates normal augmentation. T/P Trunk is compressible. PTV is compressible. RT PerV is compressible. Rt GSV in the mid calf is partially compressible with bright intraluminal echoes consistent with chronic SVT, the remainder of the Rt GSV is compressible. Procedure This is a venous duplex using B-mode, color flow and spectral Doppler. Exam performed portable in ED. A preliminary report was called and/or faxed to Dr. Carcamo. VL/Venous Duplex US, Unilateral Interpretation Summary Deep veins of the right lower extremity are patent and compressible segmentally . There is no evidence of right lower extremity deep vein thrombosis. Valvular competence alberto ears intact within the proximal deep venous system on the right . Chronic venous changes are noted in the right great saphenous vein in the mid-calf. The remainder of the right great saphenous vein is patent and compressible. The left common femoral vein is patent and compressible . Ordering Physician: Jose Antonio Carcamo Performed By: Joanne Cross RDCS, RVT
--- NOTE | 2022-10-02 10:10 | ED.VIS.LOWEX ---
HPI History of Present Illness HPI Narrative: 37-year-old female history of superficial venous phlebitis. No prior DVT. 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 States she had discomfort in her right leg last couple weeks. No fall or trauma. No injury. No swelling. No calf pain. No shortness of breath or hemoptysis. Chief Complaint: Other, Pain/Inj Informant: patient Occured/Mechanism Mechanism/Context: No injury and No blunt trauma Onset/Context/Timing Onset: Weeks Context: Gradual Onset Timing: Intermittent Quality of Pain: Dull and Aching Current Severity: Mild Maximum Severity: Mild Associated Symptoms Associated Symptoms: Negative for Parasthesia, Weakness or Loss of Funtion Narrative Narrative: 37-year-old with atraumatic leg pain. History of prior superficial venous phlebitis. Prior similar symptoms: No Recent Illness/Hospitalization: No [facility] Medical History DVT (deep vein thrombosis) in Home Medications vits,calcium no.78-iron fumarate-folic acid 29 mg-1 mg tablet (Prenatabs FA) 1 tab PO DAILY 08/15/14 [History Last Taken 05/17/19 22:00] ferrous sulfate 325 mg (65 mg iron) tablet 325 mg PO 1200,1700 #60 tabs 05/20/19 [Rx Last Taken Unknown] cephalexin 500 mg capsule 500 mg PO Q6 #28 CAPSULES 03/17/22 [Rx Last Taken Unknown] Allergy/AdvReac Type Severity Reaction Status Date / Time No Known Allergies Allergy Verified 10/02/22 09:58 Social History household members: family Smoking Status: Never smoker substance use type: does not use ROS ROS ED ROS Narrative Denies recent illness. Review of Systems ROS Unobtainable: Denies due to encephalopathy Constitutional Constitutional ED: Denies chills or fever(s) Eyes Eyes: Denies blurry vision ENT ENT ED: Denies ear pain Cardiovascular Cardiovascular: Denies chest pain Respiratory/Chest Respiratory/Chest: Denies cough or dyspnea Gastrointestinal Gastrointestinal: Denies abdominal pain Genitourinary Genitourinary ED: Denies dysuria Musculoskeletal Musculoskeletal: Denies arthralgias Integumentary Denies abscess Neurologic Neurologic: Denies headache(s) Psychiatric Psychiatric: Denies anxiety Endocrine Endocrinology: Denies polydipsia Hematologic/Lymphatic Hematologic/Lymphatic: Denies easy bleeding or easy bruising Allergic/Immunologic Allergic/Immunologic ED: Denies mouth swelling or tongue swelling EXAM Physical Exam Narrative Exam Narrative: 37-year-old female no acute distress. Vital signs stable afebrile. H EENT exam unremarkable. Lungs clear. Heart regular rhythm. Abdomen soft nontender. Moving all 4 extremities. Calves are nontender without edema or cords. [place] is a normal right leg exam. There is no cellulitis. There is no swelling. There is no calf tenderness or cords. No edema. Full range of motion to her right hip, knee and ankle. Normal dorsi plantarflexion. Normal DP pulse. There is no inguinal lymphadenopathy. There is no joint swelling or tenderness. Const Vital Signs: 10/02/22 09:58 10/02/22 09:56 Temperature 96.9 F L Temperature Source Temporal Pulse Rate 87 Respiratory Rate 14 Respiratory Effort Normal Respiratory Pattern Normal Blood Pressure 133/55 H Blood Pressure Mean 81 Pulse Ox 100 Oxygen Delivery Method Room Air Positive well nourished and well developed; Negative for obese, cachectic, contractures or unkempt General Appearance ED: well developed and NAD; Negative for unkempt, cachectic or contractures Nutritional Appearance: Negative for cachectic or obese HEENT Reports moist mucous membranes normocephalic and atraumatic; Negative for trauma or tenderness Eyes PERRL General Eye ED: Negative for other Neck full ROM and supple Thyroid: Negative for tender Lymph Lymphatic: Negative for other Chest Wall inspection of chest normal and palpation of chest normal Chest: Negative for other Resp normal respiratory effort, no retractions and clear to auscultation bilaterally Effort and Inspection: Negative for pain with movement Auscultation: Negative for rales, rhonchi or wheezes Cardio regular rate, regular rhythm, S1 normal heart sound, S2 normal heart sound and no murmurs Rate: Negative for bradycardia or tachycardic Rhythm: Negative for abnormal rhythm Bruits: Negative for other GI non-tender, non-distended and no masses Inspection: Negative for abdominal distention Auscultation: normoactive bowel sounds Palpation: soft; Negative for tender or guarding Back/Spine no CVA tenderness General Back: Negative for CVA tenderness Cervical Spine: Negative for cervical spine tenderness Thoracic Spine / Upper Back: Negative for thoracic spinal tenderness Lumbar Spine / Lower Back: Negative for lumbar spinal tenderness Extremity normal to inspection and full ROM General Extremety ED: Negative for cyanosis, edema or weight-bearing difficulty General Extremity: Negative for cyanosis, edema or weight-bearing difficulty Neuro oriented x3, CN's II-XII intact bilaterally, moves all extremities and no sensory deficits noted Sensorium / Orientation: alert, oriented to person, oriented to place and oriented to time; Negative for orientation impaired, confused, lethargic or stuporous Motor Exam: strength 5/5 throughout Psych mental status grossly normal Appearance: Negative for unkempt Speech: No other Mood & Affect: Negative for anxious Skin no wounds Lesions: no lesions Rashes: no rashes Trauma: Negative for abrasion or laceration MDM MDM MDM Narrative Medical decision making narrative: 37-year-old female with atraumatic leg discomfort. History of prior superficial phlebitis. No prior DVT even though the medical record says that. Ultrasound leg be obtained. There is been no trauma. X-rays I do not think would be helpful. There is no signs of infection. Repeat exam unchanged. Ultrasound showed no DVT. 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 She will be discharged home with outpatient follow-up if not improving. 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 Your ultrasound today did not show any blood clot. There is no signs of infection. You have chronic superficial phlebitis that is not new. Motrin and Tylenol. Follow-up as needed. Disposition Disposition: Home, Self Care
[2022-10-02 11:06] VITALS: BP 128/76; PULSE 61; RESP 14; TEMP 36.4; O2SAT 98
== END 2022-10-02 11:06 | disposition home or self-care (01) ==
PROVIDERS: Emergency Provider Emergency Medicine; Visit Provider Emergency Medicine
DX: M79.604 Pain in right leg (principal); I80.02 Phlebitis and thrombophlebitis of superficial vessels of left lower extremity
CPT/HCPCS: 93971; 99282